=== PATIENT | female | born 1960 | race Caucasian/White ===

== ENCOUNTER → 2019-08-20 | Day surgery (SDC) | payer BC, OTHER ==
[~2019-08-20] MED LIST: Cefuroxime 10 MG/ML SYRINGE EYELF SCH; Lidocaine 1% PF 2 ML SDV INJECT SCH; Pilocarpine 4% Ophth Soln 15 ML Bot EYELF SCH
[2019-08-20] MEDS: Polymyxin B/Trimethoprim 10 ML Bottle EYELF SCH ×3 (07:59→09:49)
--- NOTE | 2019-08-20 08:00 | PCM.PREANE ---
Preanesthetic Assessment - Anesthesia/Transfusion/Family Hx Anesthesia History: Prior Anesthesia Without Reaction Family History of Anesthesia Reaction: No Transfusion History: No Prior Transfusion(s) - Review of Systems General: No Symptoms Pulmonary: No Symptoms Cardiovascular: No Symptoms Gastrointestinal: No Symptoms Neurological: No Symptoms Other: Reports: None - Physical Assessment NPO Status Date: 08/19/19 NPO Status Time: 20:00 ASA Class: 1 Mental Status: Alert & Oriented x3 Airway Class: Mallampati = 2 Dentition: Reports: Normal Dentition Thyro-Mental Finger Breadths: 3 Mouth Opening Finger Breadths: 3 ROM/Head Extension: Full Lungs: Clear to Auscultation, Normal Respiratory Effort Cardiovascular: Regular Rate, Regular Rhythm - Allergies Allergies/Adverse Reactions: Allergies Allergy/AdvReac Type Severity Reaction Status Date / Time banana Allergy Cannot Verified 08/19/19 16:53 Remember soy Allergy Other Verified 08/19/19 16:53 spinach Allergy Cannot Verified 08/19/19 16:53 Remember - Acknowledgements Anesthesia Type Planned: MAC Pt an Appropriate Candidate for the Planned Anesthesia: Yes Alternatives and Risks of Anesthesia Discussed w Pt/Guardian: Yes Pt/Guardian Understands and Agrees with Anesthesia Plan: Yes PreAnesthesia Questionnaire HEENT History: Reports: Cataract Cardiovascular History: Reports: None Respiratory History: Reports: None Gastrointestinal History: Reports: None Genitourinary History: Reports: None Musculoskeletal History: Reports: None Neurological History: Reports: None Psychiatric History: Reports: None Endocrine/Metabolic History: Reports: None Hematologic History: Reports: None Oncologic (Cancer) History: Reports: None - Past Surgical History HEENT Surgical History: Reports: Tonsillectomy - SUBSTANCE USE Smoking Status *Q: Never Smoker - HOME MEDS Home Medications: Home Meds . [No Known Home Meds] 08/19/19 [History] - CURRENT (IN HOUSE) MEDS Current Meds: Current Medications Brimonidine Tartrate (Alphagan 0.2% Ophth Soln) 0 ml EYELF ASDIRECTED TOO Stop: 08/20/19 18:00 Cefuroxime Sodium (Zinacef) 0 mg EYELF ASDIRECTED TOO Stop: 08/20/19 18:00 Lidocaine HCl (Xylocaine-Mpf 1%) 0 ml INJECT ASDIRECTED TOO Stop: 08/20/19 18:00 Phenylephrine HCl (Sean-Synephrine 2.5% Ophth Soln) 0 ml EYELF ASDIRECTED TOO Stop: 08/20/19 18:00 Pilocarpine HCl (Pilocar 4% Ophth Soln) 0 ml EYELF ASDIRECTED TOO Stop: 08/20/19 18:00 Polymyxin/Trimethoprim Sulfate (Polytrim Ophth Soln) 0 ml EYELF ASDIRECTED TOO Stop: 08/20/19 18:00 Tetracaine HCl (Tetracaine 0.5% Steri-Unit [place]) 0 ml EYELF ASDIRECTED TOO Stop: 08/20/19 18:00 Tropicamide (Mydriacyl 1% Ophth Soln) 0 ml EYELF ASDIRECTED TOO Stop: 08/20/19 18:00
[2019-08-20] MEDS: Brimonidine 0.2% Ophth Soln 5 ML Bottle EYELF SCH ×3 (08:04→09:49)
[2019-08-20] MEDS: Phenylephrine 2.5% Ophth Soln 2 ML Bot EYELF SCH ×5 (08:09→09:33)
[2019-08-20] MEDS: Tropicamide 1% Ophth Soln 15 ML Bottle EYELF SCH ×4 (08:15→09:01)
[2019-08-20] MEDS: Tetracaine HCl/PF 0.5% 4 ML Bottle EYELF SCH ×2 (09:21→09:38)
--- NOTE | 2019-08-20 09:49 | PCM48HPAN ---
Post Anesthesia Note - EVALUATION WITHIN 48HRS OF ANESTHETIC Vital Signs in Normal Range: Yes Patient Participated in Evaluation: Yes Respiratory Function Stable: Yes Airway Patent: Yes Cardiovascular Function Stable: Yes Hydration Status Stable: Yes Pain Control Satisfactory: Yes Nausea and Vomiting Control Satisfactory: Yes Mental Status Recovered: Yes Vital Signs: Last Vital Signs Temp 36.4 C 08/20/19 07:45 Pulse 70 08/20/19 07:45 Resp 16 08/20/19 07:45 BP 105/62 08/20/19 07:45 Pulse Ox 97 08/20/19 07:45
== END | disposition home or self-care (01) ==
LOC: JD.SDS 07:35
PROVIDERS: ATTEND Ophthalmology
DX: H25.813 Combined forms of age-related cataract, bilateral (principal); H43.813 Vitreous degeneration, bilateral; H16.223 Keratoconjunctivitis sicca, not specified as Sjogren's, bilateral; H16.103 Unspecified superficial keratitis, bilateral; Z91.018 Allergy to other foods; Z83.511 Family history of glaucoma; Z83.518 Family history of other specified eye disorder; Z79.899 Other long term (current) drug therapy
CPT/HCPCS: 66984; J0697; J2001

== ENCOUNTER 2019-09-24 09:06 | Day surgery (SDC) | payer OTHER ==
[~2019-09-24 09:06] MED LIST changes: -Cefuroxime 10 MG/ML SYRINGE EYELF SCH; +Cefuroxime 10 MG/ML SYRINGE EYERT SCH; -Pilocarpine 4% Ophth Soln 15 ML Bot EYELF SCH; +Pilocarpine 4% Ophth Soln 15 ML Bot EYERT SCH
[2019-09-24] MEDS: Polymyxin B/Trimethoprim 10 ML Bottle EYERT SCH ×3 (09:45→12:05)
[2019-09-24] MEDS: Brimonidine 0.2% Ophth Soln 5 ML Bottle EYERT SCH ×3 (09:51→12:05)
[2019-09-24] MEDS: Phenylephrine 2.5% Ophth Soln 2 ML Bot EYERT SCH ×5 (09:57→11:47)
[2019-09-24] MEDS: Tropicamide 1% Ophth Soln 15 ML Bottle EYERT SCH ×4 (10:02→10:54)
--- NOTE | 2019-09-24 10:15 | PCM.PREANE ---
Preanesthetic Assessment - Anesthesia/Transfusion/Family Hx Anesthesia History: Prior Anesthesia Without Reaction Family History of Anesthesia Reaction: No Transfusion History: No Prior Transfusion(s) - Review of Systems General: No Symptoms Pulmonary: No Symptoms Cardiovascular: No Symptoms Gastrointestinal: No Symptoms Neurological: No Symptoms Other: Reports: None - Physical Assessment NPO Status Date: 09/23/19 NPO Status Time: 23:00 Vital Signs: Last Vital Signs Temp 97.8 F 09/24/19 09:38 Pulse 64 09/24/19 09:38 Resp 16 09/24/19 09:38 BP 109/58 L 09/24/19 09:38 Pulse Ox 95 09/24/19 09:38 Height: 1.6 m Weight: 63.503 kg ASA Class: 1 Mental Status: Alert & Oriented x3 Airway Class: Mallampati = 2 Dentition: Reports: Normal Dentition Thyro-Mental Finger Breadths: 3 Mouth Opening Finger Breadths: 3 ROM/Head Extension: Full Lungs: Clear to Auscultation, Normal Respiratory Effort Cardiovascular: Regular Rate, Regular Rhythm - Allergies Allergies/Adverse Reactions: Allergies Allergy/AdvReac Type Severity Reaction Status Date / Time banana Allergy Other Verified 09/22/19 13:14 soy Allergy Itching Verified 09/22/19 13:14 spinach Allergy Itching Verified 09/22/19 13:14 brussel sprouts Allergy Itching Uncoded 09/22/19 13:14 - Acknowledgements Anesthesia Type Planned: MAC Pt an Appropriate Candidate for the Planned Anesthesia: Yes Alternatives and Risks of Anesthesia Discussed w Pt/Guardian: Yes Pt/Guardian Understands and Agrees with Anesthesia Plan: Yes PreAnesthesia Questionnaire HEENT History: Reports: Cataract Cardiovascular History: Reports: None - Past Surgical History HEENT Surgical History: Reports: Tonsillectomy - HOME MEDS Home Medications: Home Meds . [No Known Home Meds] 08/19/19 [History] - CURRENT (IN HOUSE) MEDS Current Meds: Current Medications Brimonidine Tartrate (Alphagan 0.2% Ophth Soln) 0 ml EYERT ASDIRECTED TOO Stop: 09/24/19 23:00 Last Admin: 09/24/19 09:51 Dose: 1 drop Cefuroxime Sodium (Zinacef) 0 mg EYERT ASDIRECTED TOO Stop: 09/24/19 23:00 Lidocaine HCl (Xylocaine-Mpf 1%) 1 ml INJECT ASDIRECTED TOO Stop: 09/24/19 18:00 Phenylephrine HCl (Sean-Synephrine 2.5% Oph Soln) 0 ml EYERT ASDIRECTED TOO Stop: 09/24/19 23:00 Last Admin: 09/24/19 10:07 Dose: 1 drop Pilocarpine HCl (Pilocar 4% Oph Soln) 0 ml [facility]ERT [facility]ED [facility] Stop: 09/24/19 23:00 Polymyxin/Trimethoprim Sulfate (Polytrim Ophth Soln) 0 ml EYERT ASDIRECTED [facility] Stop: 09/24/19 23:00 Last Admin: 09/24/19 09:45 Dose: 1 drop Tetracaine HCl (Tetracaine 0.5% Steri-Unit [place]) 0 ml EYERT ASDIRECTED [facility] Stop: 09/24/19 23:00 Tropicamide (Mydriacyl 1% Oph Soln) 0 ml EYERT ASDIRECTED [facility] Stop: 09/24/19 23:00 Last Admin: 09/24/19 10:02 Dose: 1 drop
[2019-09-24] MEDS: Tetracaine HCl/PF 0.5% 4 ML Bottle EYERT SCH ×2 (11:40→11:54)
--- NOTE | 2019-09-24 12:06 | PCM48HPAN ---
Post Anesthesia Note - EVALUATION WITHIN 48HRS OF ANESTHETIC Vital Signs in Normal Range: Yes Patient Participated in Evaluation: Yes Respiratory Function Stable: Yes Airway Patent: Yes Cardiovascular Function Stable: Yes Hydration Status Stable: Yes Pain Control Satisfactory: Yes Nausea and Vomiting Control Satisfactory: Yes Mental Status Recovered: Yes Vital Signs: Last Vital Signs Temp 36.6 C 09/24/19 09:38 Pulse 64 09/24/19 09:38 Resp 16 09/24/19 09:38 BP 109/58 L 09/24/19 09:38 Pulse Ox 95 09/24/19 09:38
== END 2019-09-24 12:16 | disposition home or self-care (01) ==
LOC: JD.SDS 09:06
PROVIDERS: ATTEND Ophthalmology
DX: H25.811 Combined forms of age-related cataract, right eye (principal); Z91.018 Allergy to other foods
CPT/HCPCS: C1780; J0697; J2001